=== PATIENT | male | born 1970 | race Caucasian/White ===

== ENCOUNTER 2021-12-22 20:51 | Emergency (ER) | payer SELFPAY ==
[2021-12-23] MEDS ORDERED: IBUPROFEN600 MG PO (00:34)
== END 2021-12-23 00:38 | disposition home or self-care (01) ==
LOC: ER1 20:51
DX: J02.9 Acute pharyngitis, unspecified (principal); Z88.5 Allergy status to narcotic agent; Z20.822 Contact with and (suspected) exposure to COVID-19
CPT/HCPCS: 0240U; 71045; 87081; 87880; 99283